=== PATIENT | female | born 1960 | race Hispanic/Latino ===

== ENCOUNTER 2017-09-18 16:11 | Observation (INO) | payer MEDICAID ==
[2017-09-18 16:12] VITALS: BMI 33.7
--- NOTE | 2017-09-18 16:34 | C.PDOC ---
History Of Present Illness 56 yr old female with PMHx of asthma, presents to the ER with complaints of cough and worsening SOB for the past 2-3 days. Patient denies history of smoking , previous history of DVT, fever, sputum production, nausea, vomiting, calf pain , weakness or numbness. Time Seen by Provider: 09/18/17 16:22 Chief Complaint (Nursing): Shortness Of Breath History Per: Patient History/Exam Limitations: no limitations Onset/Duration Of Symptoms: Days (2-3 days) Past Medical History Reviewed: Historical Data, Nursing Documentation, Vital Signs Vital Signs: Last Vital Signs Temp 97.9 F 09/18/17 16:15 Pulse 93 H 09/18/17 16:15 Resp 18 09/18/17 16:15 BP 145/81 09/18/17 16:15 Pulse Ox 96 09/18/17 17:42 - Medical History PMH: Anxiety, Asthma, Bronchitis, COPD, Diabetes, HTN, Hypercholesterolemia Surgical History: Appendectomy, Cholecystectomy, Hernia Repair - [facility] ASSISTANCE WITH RESPIRATORY VENTILATION, >96 HRS (12/02/16) NEBULIZER THERAPY (08/09/13) OTHER SKIN & SUBQ I D (11/11/13) ROM & JT MOBILITY TRMT MUSCULOSK WHOLE W ASSIST EQUIP (12/02/16) Family History: States: CAD, Diabetes - Social History Hx Tobacco Use: No Hx Alcohol Use: No Hx Substance Use: No - Immunization History Hx Tetanus Toxoid Vaccination: Yes Hx Influenza Vaccination: Yes Hx Pneumococcal Vaccination: Yes Review Of Systems Except As Marked, All Systems Reviewed And Found Negative. Constitutional: Negative for: Fever Respiratory: Positive for: Cough, Shortness of Breath. Negative for: Sputum Gastrointestinal: Negative for: Nausea, Vomiting Neurological: Negative for: Weakness, Numbness Physical Exam - Physical Exam Appears: Non-toxic, No Acute Distress Skin: Warm, Dry, No Rash Oral Mucosa: Moist Neck: Normal, Normal ROM, Supple Cardiovascular: Rhythm Regular, Other (S1 S2 normal) Respiratory: No Accessory Muscle Use, Rhonchi (few scattered rhonci), No Wheezing Gastrointestinal/Abdominal: Normal Exam, Soft, No Tenderness, No Mass, No Guarding, No Rebound, Other (obese) Extremity: Normal ROM, Capillary Refill (<2 secs), Other (no edema, no synosis, no clubbing) Neurological/Psych: Oriented x3, Normal Speech ED Course And Treatment - Laboratory Results Result Diagrams: 09/18/17 16:50 09/18/17 16:50 ECG: Interpreted By Me ECG Rhythm: Sinus Rhythm ECG Interpretation: Normal, No Acute Changes Interpretation Of ECG: NSR at 92 BPM,no ectopy,no interval abnormalities,axis wnl,no ectopy.ST segments wnl O2 Sat by Pulse Oximetry: 96 (RA) Pulse Ox Interpretation: Normal - Radiology CXR: Viewed By Me, Read By Radiologist CXR Interpretation: Yes: No Acute Disease Medical Decision Making Medical Decision Making: IMPRESSION: Dyspnea, rule out pneumonia, URI PLAN: * CXR * EKG * Labs Case reviewed with Dr Hilario who wishes pt admitted for observation Disposition - Disposition Disposition: HOSPITALIZED Disposition Time: 17:53 Condition: GOOD Forms: [facility] ([place]) - Clinical Impression Clinical Impression: Dyspnea, Asthma - Scribe Statement The provider has reviewed the documentation as recorded by the Adrianaibe Nuha Alvarenga Provider Attestation: All medical record entries made by the Scribe were at my direction and personally dictated by me. I have reviewed the chart and agree that the record accurately reflects my personal performance of the history, physical exam, medical decision making, and the department course for this patient. I have also personally directed, reviewed, and agree with the discharge instructions and disposition.
[2017-09-18] MEDS ORDERED: Albuterol-Ipratrop 3 mg / 0.5 (3 ml) UD INH STA (16:52)
--- NOTE | 2017-09-18 16:55 | RAD ---
PROCEDURE: CHEST RADIOGRAPH, 1 VIEW HISTORY: SOB COMPARISON: Chest radiograph dated 06/25/2016 FINDINGS: LUNGS: Clear. PLEURA: No pneumothorax or pleural fluid seen. CARDIOVASCULAR: Normal. OSSEOUS STRUCTURES: Unchanged. VISUALIZED UPPER ABDOMEN: Normal. OTHER FINDINGS: None. IMPRESSION: No active disease.
[2017-09-18 16:58] LABS: BASO # 0.1 K/uL (0.0-0.2); BASO % 0.8 % (0.0-2.0); EOS # 0.2 K/uL (0.0-0.7); EOS % 2.6 % (0.0-4.0); HEMOGLOBIN 14.1 g/dL (11.0-16.0); LYMPH # 3.9 K/uL (1.0-4.3); LYMPH % 49.1 % (20.0-40.0); MEAN CELL VOLUME 85.1 fL (81.0-99.0); MEAN CORPUSCULAR HEMOGLOBIN 28.6 pg (27.0-31.0); MEAN CORPUSCULAR HGB CONC 33.6 g/dL (33.0-37.0); MEAN PLATELET VOLUME 7.3 fL (7.2-11.7); MONO # 0.5 K/uL (0.0-0.8); MONO % 6.6 % (0.0-10.0); NEUT # 3.2 K/uL (1.8-7.0); NEUT % 40.9 % (50.0-75.0); NRBC % 0.1 % (0.0-2.0); RBC 4.92 Mil/uL (3.80-5.20); RED CELL DISTRIBUTION WIDTH 13.4 % (11.5-14.5); WHITE BLOOD COUNT 7.9 K/uL (4.8-10.8)
[2017-09-18] MEDS ORDERED: Albuterol-Ipratrop 3 mg / 0.5 (3 ml) UD ONE (17:04)
[2017-09-18 17:07] LABS: PARTIAL THROMBOPLASTIN TIME 34 SECONDS (21-34)
[2017-09-18 17:08] LABS: ALB/GLOB RATIO 1.2 (1.0-2.1); ALBUMIN 4.2 g/dL (3.5-5.0); ALT/SGPT 44 U/L (9-52); AST/SGOT 22 U/L (14-36); BLOOD UREA NITROGEN 15 mg/dL (7-17); CALCIUM 9.5 mg/dl (8.6-10.4); D DIMER < 200 ng/mlDDU (0-243); GFR AFRICAN-AMERICAN > 60; GFR NON-AFRICAN AMERICAN > 60
[2017-09-18 17:20] LABS: B-TYPE NATRIURETIC PEPTIDE 21.1 pg/mL (0-900)
[2017-09-18 20:05] VITALS: RESP 20
[2017-09-18] MEDS ORDERED: guaiFENesin 200 mg/10 ml Syrup UD PO PRN (21:19)
--- NOTE | 2017-09-18 21:32 | CP.PCM.HP ---
<Johnny Green - Last Filed: 09/18/17 21:31> History of Present Illness - History of Present Illness History of Present Illness: CC: Shortness of breath HPI: 56 yr old female with PMHx of asthma, presents to the ER with complaints of cough and worsening SOB for the past 2-3 days. Patient denies history of smoking, previous history of DVT, fever, sputum production, nausea, vomiting, calf pain, weakness or numbness. Past Patient History - Infectious Disease Hx of Infectious Diseases: None - Tetanus Immunizations Tetanus Immunization: Unknown - Past Medical History & Family History Past Medical History?: Yes - Past Social History Smoking Status: Never Smoked - CARDIAC Hx Hypercholesterolemia: Yes Hx Hypertension: Yes - PULMONARY Hx Asthma: Yes Hx Bronchitis: Yes Hx Chronic Obstructive Pulmonary Disease (COPD): Yes - NEUROLOGICAL Hx Alzheimer's Disease: No - HEENT Hx HEENT Problems: No - RENAL Hx Chronic Kidney Disease: No - ENDOCRINE/METABOLIC Hx Endocrine Disorders: Yes Hx Diabetes Mellitus Type 2: Yes - HEMATOLOGICAL/ONCOLOGICAL Hx Human Immunodeficiency Virus (HIV): No - INTEGUMENTARY Hx Dermatological Problems: No - MUSCULOSKELETAL/RHEUMATOLOGICAL Hx Musculoskeletal Disorders: No Hx Falls: No - GASTROINTESTINAL Hx Gastrointestinal Disorders: Yes - GENITOURINARY/GYNECOLOGICAL Hx Genitourinary Disorders: No - PSYCHIATRIC Hx Anxiety: Yes Hx Substance Use: No - SURGICAL HISTORY Hx Appendectomy: Yes Hx Cholecystectomy: Yes - ANESTHESIA Hx Anesthesia: Yes Hx Anesthesia Reactions: No Hx Malignant Hyperthermia: No Meds Allergies/Adverse Reactions: Allergies Allergy/AdvReac Type Severity Reaction Status Date / Time Penicillins Allergy URTICARIA Verified 09/18/17 16:15 Results - Vital Signs Recent Vital Signs: Last Vital Signs Temp 98.0 F 09/18/17 19:00 Pulse 89 09/18/17 19:00 Resp 20 09/18/17 19:00 BP 136/85 09/18/17 19:00 Pulse Ox 96 09/18/17 19:00 - Labs Result Diagrams: 09/18/17 16:50 09/18/17 16:50 Labs: Laboratory Results - last 24 hr 09/18/17 09/18/17 09/18/17 16:50 16:50 16:50 WBC 7.9 RBC 4.92 Hgb 14.1 Hct 41.9 MCV 85.1 MCH 28.6 MCHC 33.6 RDW 13.4 Plt Count 313 MPV 7.3 Neut % (Auto) 40.9 L Lymph % (Auto) 49.1 H [place] % (Auto) 6.6 Eos % (Auto) 2.6 Baso % (Auto) 0.8 Neut # (Auto) 3.2 Lymph # (Auto) 3.9 [place] # (Auto) 0.5 Eos # (Auto) 0.2 Baso # (Auto) 0.1 PT 11.0 INR 1.0 APTT 34 D-Dimer, Quantitative < 200 Sodium 144 Potassium 4.0 Chloride 107 Carbon Dioxide 25 Anion Gap 17 BUN 15 Creatinine 0.8 Est GFR ( Amer) > 60 Est GFR (Non-Af Amer) > 60 POC Glucose (mg/dL) Random Glucose 101 Calcium 9.5 Total Bilirubin 0.4 AST 22 ALT 44 Alkaline Phosphatase 86 Troponin I < 0.0120 NT-Pro-B Natriuret Pep 21.1 Total Protein 7.9 Albumin 4.2 Globulin 3.6 Albumin/Globulin Ratio 1.2 09/18/17 21:22 WBC RBC Hgb Hct MCV MCH MCHC RDW Plt Count MPV Neut % (Auto) Lymph % (Auto) [place] % (Auto) Eos % (Auto) Baso % (Auto) Neut # (Auto) Lymph # (Auto) [place] # (Auto) Eos # (Auto) Baso # (Auto) PT INR APTT D-Dimer, Quantitative Sodium Potassium Chloride Carbon Dioxide Anion Gap BUN Creatinine Est GFR ( Amer) Est GFR (Non-Af Amer) POC Glucose (mg/dL) 163 H Random Glucose Calcium Total Bilirubin AST ALT Alkaline Phosphatase Troponin I NT-Pro-B Natriuret Pep Total Protein Albumin Globulin Albumin/Globulin Ratio <Kelsi Fowler - Last Filed: 09/19/17 00:02> Present on Admission - Present on Admission Any Indicators Present on Admission: No History of DVT/PE: No History of Uncontrolled Diabetes: No Urinary Catheter: No Decubitus Ulcer Present: No Results - Vital Signs Recent Vital Signs: Last Vital Signs Temp 98.0 F 09/18/17 19:00 Pulse 89 09/18/17 19:00 Resp 20 09/18/17 19:00 BP 136/85 09/18/17 19:00 Pulse Ox 96 09/18/17 23:02 - Labs Result Diagrams: 09/18/17 16:50 09/18/17 16:50 Labs: Laboratory Results - last 24 hr 09/18/17 09/18/17 09/18/17 16:50 16:50 16:50 WBC 7.9 RBC 4.92 Hgb 14.1 Hct 41.9 MCV 85.1 MCH 28.6 MCHC 33.6 RDW 13.4 Plt Count 313 MPV 7.3 Neut % (Auto) 40.9 L Lymph % (Auto) 49.1 H [place] % (Auto) 6.6 Eos % (Auto) 2.6 Baso % (Auto) 0.8 Neut # (Auto) 3.2 Lymph # (Auto) 3.9 [place] # (Auto) 0.5 Eos # (Auto) 0.2 Baso # (Auto) 0.1 PT 11.0 INR 1.0 APTT 34 D-Dimer, Quantitative < 200 Sodium 144 Potassium 4.0 Chloride 107 Carbon Dioxide 25 Anion Gap 17 BUN 15 Creatinine 0.8 Est GFR ( Amer) > 60 Est GFR (Non-Af Amer) > 60 POC Glucose (mg/dL) Random Glucose 101 Calcium 9.5 Total Bilirubin 0.4 AST 22 ALT 44 Alkaline Phosphatase 86 Troponin I < 0.0120 NT-Pro-B Natriuret Pep 21.1 Total Protein 7.9 Albumin 4.2 Globulin 3.6 Albumin/Globulin Ratio 1.2 09/18/17 21:22 WBC RBC Hgb Hct MCV MCH MCHC RDW Plt Count MPV Neut % (Auto) Lymph % (Auto) [place] % (Auto) Eos % (Auto) Baso % (Auto) Neut # (Auto) Lymph # (Auto) [place] # (Auto) Eos # (Auto) Baso # (Auto) PT INR APTT D-Dimer, Quantitative Sodium Potassium Chloride Carbon Dioxide Anion Gap BUN Creatinine Est GFR ( Amer) Est GFR (Non-Af Amer) POC Glucose (mg/dL) 163 H Random Glucose Calcium Total Bilirubin AST ALT Alkaline Phosphatase Troponin I NT-Pro-B Natriuret Pep Total Protein Albumin Globulin Albumin/Globulin Ratio
[2017-09-18] MEDS: (Novolog) Insulin Aspart, Recombinant 100 u/ml 10 ml vial SC SCH (22:18)
[2017-09-19] MEDS: Albuterol-Ipratrop 3 mg / 0.5 (3 ml) UD INH SCH ×4 (01:12→19:12)
[2017-09-19] MEDS: (Novolog) Insulin Aspart, Recombinant 100 u/ml 10 ml vial SC SCH ×4 (08:30→21:48)
[2017-09-19] MEDS: Enoxaparin 40 mg Syringe SC SCH (09:51)
[2017-09-19] MEDS: Fluticasone-Salmeterol 250-50mcg Diskus INH SCH (10:28)
[2017-09-19] MEDS: guaiFENesin 100 mg/5 ml Syrup UD PO SCH ×4 (11:03→22:23)
--- NOTE | 2017-09-19 23:25 | CP.PCM.PN ---
Subjective - Date & Time of Evaluation Date of Evaluation: 09/19/17 Time of Evaluation: 17:00 - Subjective Subjective: CC: palpitations, shortness of breath HPI: 56 year old female, morbidly obese came in with c/o shortness of breath denies any cough, sore throat she has been feeling increasingly tired, fatigued since few days pt is on oxygen, nebulizer, she is anxious and restless and keeps repeating questions Objective - Vital Signs/Intake and Output Vital Signs (last 24 hours): Temp Pulse Resp BP Pulse Ox 97.7 F 112 H 20 101/63 96 09/19/17 16:00 09/19/17 16:00 09/19/17 16:00 09/19/17 16:00 09/19/17 16:00 Intake and Output: 09/19/17 09/20/17 18:59 06:59 Intake Total 800 Balance 800 - Medications Medications: Current Medications Albuterol/Ipratropium (Duoneb 3 Mg/0.5 Mg (3 Ml) Ud) 3 ml INH RQ6 [facility] Last Admin: 09/19/17 19:12 Dose: 3 ml Azithromycin (Zithromax) 500 mg PO DAILY [facility] Stop: 09/20/17 23:59 Last Admin: 09/19/17 09:53 Dose: 500 mg Enoxaparin Sodium (Lovenox) 40 mg SC DAILY [facility] Last Admin: 09/19/17 09:51 Dose: 40 mg Guaifenesin (Robitussin) 100 mg PO Q4H [facility] Last Admin: 09/19/17 22:23 Dose: 100 mg Insulin Aspart (Novolog) 0 unit SC [facility] PRN Reason: Protocol Last Admin: 09/19/17 21:48 Dose: Not Given Losartan Potassium (Cozaar) 100 mg PO DAILY [facility] Last Admin: 09/19/17 09:50 Dose: 100 mg Metformin HCl (Glucophage) 500 mg PO BIDPC [facility] Last Admin: 09/19/17 17:24 Dose: 500 mg Metoprolol Tartrate (Lopressor) 25 mg PO DAILY [facility] Last Admin: 09/19/17 09:50 Dose: 25 mg Montelukast Sodium (Singulair) 10 mg PO [facility] Last Admin: 09/19/17 21:25 Dose: 10 mg Rosuvastatin Calcium (Crestor) 5 mg PO [facility] Last Admin: 09/19/17 21:25 Dose: 5 mg Fluticasone/Salmeterol (Advair Diskus 250/50) 1 puff INH RQ12 [facility] Last Admin: 09/19/17 10:28 Dose: Not Given Tramadol HCl (Ultram) 50 mg PO Q8H PRN PRN Reason: Pain, moderate (4-7) - Labs Labs: 09/18/17 16:50 09/18/17 16:50 PT 11.0 SECONDS (9.7-12.2) 09/18/17 16:50 INR 1.0 09/18/17 16:50 APTT 34 SECONDS (21-34) 09/18/17 16:50 - Constitutional Appears: No Acute Distress - Eye Exam Eye Exam: EOMI, Normal appearance, PERRL Pupil Exam: NORMAL ACCOMODATION, PERRL - Respiratory Exam Respiratory Exam: Decreased Breath Sounds, Clear to Ausculation Bilateral, NORMAL BREATHING PATTERN - Cardiovascular Exam Cardiovascular Exam: Tachycardia, +S1, +S2 - Neurological Exam Neurological Exam: Alert, Oriented x3 - Psychiatric Exam Psychiatric exam: Anxious Assessment and Plan (1) Asthma Status: Acute (2) Dyspnea Status: Acute (3) Anxiety Status: Acute (4) COPD exacerbation Status: Acute
[2017-09-20 00:54] VITALS: TEMP 98.5
[2017-09-20] MEDS: Albuterol-Ipratrop 3 mg / 0.5 (3 ml) UD INH SCH ×2 (01:07→09:01)
[2017-09-20] MEDS: Fluticasone-Salmeterol 250-50mcg Diskus INH SCH ×2 (01:15→08:35)
[2017-09-20] MEDS: guaiFENesin 100 mg/5 ml Syrup UD PO SCH ×3 (04:00→10:33)
[2017-09-20] MEDS: (Novolog) Insulin Aspart, Recombinant 100 u/ml 10 ml vial SC SCH ×2 (07:55→11:36)
[2017-09-20 08:38] VITALS: BP 120/79; PULSE 93; O2SAT 98
[2017-09-20] MEDS: Enoxaparin 40 mg Syringe SC SCH (10:32)
--- NOTE | 2017-09-20 17:47 | CP.PCM.PN ---
Subjective - Date & Time of Evaluation Date of Evaluation: 09/20/17 Time of Evaluation: 11:00 - Subjective Subjective: Alert, oriented, no sob or chest pains now. Objective - Vital Signs/Intake and Output Vital Signs (last 24 hours): Temp Pulse Resp BP Pulse Ox 98.5 F 93 H 20 120/79 98 09/20/17 08:36 09/20/17 08:36 09/20/17 08:36 09/20/17 10:33 09/20/17 08:36 Intake and Output: 09/20/17 09/20/17 06:59 18:59 Intake Total 900 Balance 900 - Labs Labs: 09/18/17 16:50 09/18/17 16:50 PT 11.0 SECONDS (9.7-12.2) 09/18/17 16:50 INR 1.0 09/18/17 16:50 APTT 34 SECONDS (21-34) 09/18/17 16:50 Assessment and Plan - Assessment and Plan (Free Text) Assessment: Patient admitted with sob, seen and examined. Alert and orientedx3, no wheezing or distress. Seen by DR Green, plan to discharge home on prednisone tapering dose. Advised to follow up with PMD in 1 week. Patient verbalized understanding.
--- NOTE | 2017-09-20 23:11 | CP.PCM.DIS ---
Provider - Provider Date of Admission: 09/18/17 17:54 Attending physician: Johnny Green MD Diagnosis - Discharge Diagnosis (1) Asthma Status: Acute (2) Dyspnea Status: Acute (3) Anxiety Status: Acute (4) COPD exacerbation Status: Acute Hospital Course - Lab Results Lab Results: Most Recent Lab Values WBC 7.9 K/uL (4.8-10.8) 09/18/17 16:50 RBC 4.92 Mil/uL (3.80-5.20) 09/18/17 16:50 Hgb 14.1 g/dL (11.0-16.0) 09/18/17 16:50 Hct 41.9 % (34.0-47.0) 09/18/17 16:50 MCV 85.1 fL (81.0-99.0) 09/18/17 16:50 MCH 28.6 pg (27.0-31.0) 09/18/17 16:50 MCHC 33.6 g/dL (33.0-37.0) 09/18/17 16:50 RDW 13.4 % (11.5-14.5) 09/18/17 16:50 Plt Count 313 K/uL (130-400) 09/18/17 16:50 MPV 7.3 fL (7.2-11.7) 09/18/17 16:50 Neut % (Auto) 40.9 % (50.0-75.0) L 09/18/17 16:50 Lymph % (Auto) 49.1 % (20.0-40.0) H 09/18/17 16:50 [place] % (Auto) 6.6 % (0.0-10.0) 09/18/17 16:50 Eos % (Auto) 2.6 % (0.0-4.0) 09/18/17 16:50 Baso % (Auto) 0.8 % (0.0-2.0) 09/18/17 16:50 Neut # (Auto) 3.2 K/uL (1.8-7.0) 09/18/17 16:50 Lymph # (Auto) 3.9 K/uL (1.0-4.3) 09/18/17 16:50 [place] # (Auto) 0.5 K/uL (0.0-0.8) 09/18/17 16:50 Eos # (Auto) 0.2 K/uL (0.0-0.7) 09/18/17 16:50 Baso # (Auto) 0.1 K/uL (0.0-0.2) 09/18/17 16:50 PT 11.0 SECONDS (9.7-12.2) 09/18/17 16:50 INR 1.0 09/18/17 16:50 APTT 34 SECONDS (21-34) 09/18/17 16:50 D-Dimer, Quantitative < 200 ng/mlDDU (0-243) 09/18/17 16:50 Sodium 144 mmol/L (132-148) 09/18/17 16:50 Potassium 4.0 mmol/L (3.6-5.2) 09/18/17 16:50 Chloride 107 mmol/L (98-107) 09/18/17 16:50 Carbon Dioxide 25 mmol/L (22-30) 09/18/17 16:50 Anion Gap 17 (10-20) 09/18/17 16:50 BUN 15 mg/dL (7-17) 09/18/17 16:50 Creatinine 0.8 mg/dL (0.7-1.2) 09/18/17 16:50 Est GFR ( Amer) > 60 09/18/17 16:50 Est GFR (Non-Af Amer) > 60 09/18/17 16:50 POC Glucose (mg/dL) 91 mg/dL (65-110) 09/20/17 11:25 Random Glucose 101 mg/dL (65-105) 09/18/17 16:50 Calcium 9.5 mg/dl (8.6-10.4) 09/18/17 16:50 Total Bilirubin 0.4 mg/dL (0.2-1.3) 09/18/17 16:50 AST 22 U/L (14-36) 09/18/17 16:50 ALT 44 U/L (9-52) 09/18/17 16:50 Alkaline Phosphatase 86 U/L (38-126) 09/18/17 16:50 Troponin I < 0.0120 ng/mL (0.00-0.120) 09/18/17 16:50 NT-Pro-B Natriuret Pep 21.1 pg/mL (0-900) 09/18/17 16:50 Total Protein 7.9 g/dL (6.3-8.3) 09/18/17 16:50 Albumin 4.2 g/dL (3.5-5.0) 09/18/17 16:50 Globulin 3.6 gm/dL (2.2-3.9) 09/18/17 16:50 Albumin/Globulin Ratio 1.2 (1.0-2.1) 09/18/17 16:50 Discharge Plan - Discharge Medications Prescriptions: predniSONE [Prednisone] 10 mg PO DAILY #10 tab - Follow Up Plan Condition: GOOD Disposition: HOME/ ROUTINE Instructions: Asthma, Adult (DC), Shortness of Breath (Dyspnea) (DC), Prednisone Referrals: Johnny Green MD [Staff Provider] -
== END 2017-09-20 13:26 | disposition home or self-care (01) ==
LOC: C.ER 16:11 → C.9E 17:54 → C.3T 18:20
PROVIDERS: ADMIT Internal Medicine; ATTEND Internal Medicine
DX: J44.1 Chronic obstructive pulmonary disease with (acute) exacerbation (principal); E11.9 Type 2 diabetes mellitus without complications; E66.01 Morbid (severe) obesity due to excess calories; E78.00 Pure hypercholesterolemia, unspecified; F41.9 Anxiety disorder, unspecified; I10 Essential (primary) hypertension; I25.10 Atherosclerotic heart disease of native coronary artery without angina pectoris
CPT/HCPCS: 71045; 80053; 82948; 83880; 84484; 85025; 85378; 85610; 85730; 94150; 94640; 96374; 99284; G0378; J1650; J2930